=== PATIENT | female | born 1990 | race Asian ===

== ENCOUNTER → 2024-01-28 | Day surgery (SDC) | payer OTHER | END | disposition home or self-care (01) | LOC: JRADUS-SUR 09:03 | PROVIDERS: ATTEND Obstetrics & Gynecology | PROC: BU1 Imaging, Female Reproductive System, Fluoroscopy (ICD-10-PCS; principal; 2024-01-28) | DX: N97.9 Female infertility, unspecified (principal); Z53.8 Procedure and treatment not carried out for other reasons | CPT/HCPCS: 58340; 74740-TC-FY; 76000-TC-FY; 84703 ==

== ENCOUNTER → 2024-02-18 | Day surgery (SDC) | payer OTHER | END | disposition home or self-care (01) | LOC: JRADUS-SUR 09:12 | PROVIDERS: ATTEND Obstetrics & Gynecology | PROC: BU18YZZ Fluoroscopy of Uterus and Fallopian Tubes using Other Contrast (ICD-10-PCS; principal; 2024-02-18) | DX: N97.9 Female infertility, unspecified (principal) | CPT/HCPCS: 58340; 74740-TC-FY; 76000-TC-FY; 84703 ==

== ENCOUNTER 2024-05-29 13:53 | Emergency (ER) | payer OTHER ==
[2024-05-29 14:21] VITALS: BP 95/56; PULSE 67; RESP 18; TEMP 98.1; BMI 16.0
[2024-05-29] MEDS ORDERED: ACETAMINOPHEN 325 MG TABLET (FP) ONE (16:00)
[2024-05-29] MEDS: ACETAMINOPHEN 325 MG TABLET (FP) PO ONE (16:03)
== END 2024-05-29 16:58 | disposition home or self-care (01) ==
LOC: JER 13:53
PROC: 0U9MXZZ Drainage of Vulva, External Approach (ICD-10-PCS; principal; 2024-05-29)
DX: N75.0 Cyst of Bartholin's gland (principal); R09.89 Other specified symptoms and signs involving the circulatory and respiratory systems; Z20.822 Contact with and (suspected) exposure to COVID-19
CPT/HCPCS: 0241U-QW; 84703; 99283-25